=== PATIENT | female | born 1940 | race Caucasian/White ===

== ENCOUNTER 2017-01-04 06:39 | Emergency (ER) | payer OTHER ==
[~2017-01-04] VITALS: Ht 165.1 cm; Wt 59.0 kg
[2017-01-04] MEDS ORDERED: BENADRYL25 MG (06:53)
[2017-01-04] MEDS ORDERED: ALEVE220 MG PO (06:54)
[2017-01-04] MEDS ORDERED: NORCO 5-325 TA1 EACH PO (08:53)
[2017-01-04 09:57] VITALS: BP 120/70
== END 2017-01-04 10:03 | disposition home or self-care (01) ==
LOC: ER 06:39
DX: S52.322A Displaced transverse fracture of shaft of left radius, initial encounter for closed fracture (principal); S52.222A Displaced transverse fracture of shaft of left ulna, initial encounter for closed fracture; S01.81XA Laceration without foreign body of other part of head, initial encounter; S80.212A Abrasion, left knee, initial encounter; W18.31XA Fall on same level due to stepping on an object, initial encounter; Y93.89 Activity, other specified; Y92.89 Other specified places as the place of occurrence of the external cause; Y99.8 Other external cause status

== ENCOUNTER → 2017-01-11 | Outpatient (CLI) | payer OTHER ==
[~2017-01-11] MED LIST: ALEVE220 MG PO; BENADRYL25 MG; NORCO 5-325 TA1 EACH PO
--- NOTE | ~2017-01-11 | EKG ---
[place] [address] [facility] [employer] [place] [address] ELECTROCARDIOGRAM REPORT Name: AIDA DAILY ANN Room #: REG MICHAEL Calvert#: [id number] Admission: 01/11/17 Attend Phys: Arianna Watt MD Discharge: Date of : 44 Report #: [id number] THIS REPORT FOR: //name// [facility] Test Date: 2017-01-11 Test Time: 10:36:52 Pat Name: AIDA DAILY Department: Room: Gender: F Conveyancer: cherise : 1940 Requested By: Arianna Watt Order Number: [id number] MD: Jones Lao Measurements Intervals [place] Rate: 94 P: -25 [place]: 128 QRS: 80 QRSD: 92 T: 39 QT: 332 QTc: 416 Interpretive Statements Sinus rhythm RSR' in V1 or V2, right VCD No previous ECG available for comparison Electronically Signed On 01-11-2017 18:29:00 CDT by Jones Lao [email or web address] <ELECTRONICALLY SIGNED> By: Jones Lao MD, [facility] 01/11/17 1829 1036 1036 Jones Lao MD, FACC /EPI
== END ==
LOC: CV 09:58
DX: Z01.818 Encounter for other preprocedural examination (principal)

== ENCOUNTER 2020-08-01 10:11 | Inpatient (IN) | payer OTHER ==
[~2020-08-01] VITALS: Ht 167.6 cm; Wt 65.3 kg
[2020-08-01 10:12] VITALS: BP 133/66
--- NOTE | 2020-08-01 10:28 | NUR ---
INTRODUCED SELF TO PT DISCUSSED ER PLAN OF CARE ORIENTED TO ROOM AND EQUIPTMENT WARM BLANKET GIVEN
[2020-08-01 12:49] LABS: ABSOLUTE NEUTROPHILS 9.4 thou/uL (1.4-8.2); BASOPHILS 0.7 % (0.0-2.0); EOSINOPHILS 0.3 % (0.0-3.0); HEMATOCRIT 32.4 % (37.0-47.0); HEMOGLOBIN 9.3 gm/dL (12.0-15.0); LYMPHOCYTES 7.5 % (24.0-44.0); MCH 16.1 pg (26.0-34.0); MCHC 28.8 g/dL (28.0-37.0); MONOCYTES 3.2 % (1.0-8.0); PLATELET COUNT 455 thou/uL (150-400); POLYS 88.3 % (36.0-66.0); RBC 5.78 mil/uL (4.20-5.00); RDW 21.7 % (10.5-14.5); WBC 10.7 thou/uL (4.0-11.0)
[2020-08-01 12:58] LABS: CREATININE 0.8 mg/dL (0.6-1.0); POTASSIUM 3.9 mmol/L (3.5-5.1)
[2020-08-01 13:01] LABS: ALBUMIN 3.5 g/dL (3.4-5.0); TOTAL BILIRUBIN 1.6 mg/dL (0.2-1.0); TOTAL PROTEIN 7.1 g/dL (6.4-8.2)
[2020-08-01 13:33] LABS: ANISOCYTOSIS 2+; HYPOCHROMASIA 3+; MICROCYTES 3+; OVALOCYTES 1+
[2020-08-01 13:39] LABS: URINE BILIRUBIN NEGATIVE (Negative); URINE BLOOD NEGATIVE (Negative); URINE CLARITY CLOUDY; URINE COLOR YELLOW; URINE GLUCOSE-RANDOM* NEGATIVE (Negative); URINE KETONES NEGATIVE (Negative); URINE LEUKOCYTES-REFLEX TRACE (Negative); URINE PROTEIN (DIPSTICK) NEGATIVE (Negative); URINE SPECIFIC GRAVITY 1.015 (1.005-1.035); URINE UROBILINOGEN 0.2 E.U./dl (0.2-1.0)
[2020-08-01 13:41] LABS: URINE NITRITE-REFLEX POSITIVE (Negative)
[2020-08-01 13:50] LABS: SQUAMOUS 0-3 Few /LPF (0-3)
[2020-08-01 13:51] LABS: AMORPHOUS URATES Few /LPF (None Seen); BACTERIA-REFLEX 1-9 Few /HPF (None Seen); CASTS None Seen /LPF (None Seen); URINE RBC None Seen /HPF (0-2); URINE WBC-REFLEX 0-5 Rare /HPF (0-5)
[2020-08-01 14:43] VITALS: BP 135/71
[2020-08-01 15:00] VITALS: BP 135/71
--- NOTE | 2020-08-01 18:46 | NUR ---
Admitted per ED at 1509 to RM 437. Alert and orientated X4. Calm and cooperative. States she fell on ice this AM. Edema around L eye with bruising above eye. Small abrasion to R knee. Pupils equal, boat builder equal and strong. Breath sounds clear, bilaterally equal. Reg HR auscultated. Color pink with brisk capillary refill and palpable peripheral pulses. Continent of urine. Active bowel sounds over soft, rounded abdomen. States she had BM this AM prior to fall. Knee immobilizer in place per L leg, removed to take off jeans, knee swollen. Speaking on phone without s/o distress.
[2020-08-01 20:01] VITALS: BP 114/73
--- NOTE | 2020-08-02 02:57 | NUR ---
PT LYING IN BED. VOIDING PER BEDPAN. LORTAB PROVIDING PAIN RELIEF. RESTING COMFORTABLY. NO NEEDS VOICED. CALL LIGHT WITHIN REACH. FREQUENT OBSERVATION.
[2020-08-02 07:35] VITALS: BP 120/64
--- NOTE | 2020-08-02 08:39 | NUR ---
ASSUMED CARE OF PATIENT 0645 SHE IS ALERT XS 4 RESING IN BED NO PAIN OR RESP DISTRESS USES BEDPAIN STATES PLAN IS PATELLA SURGERY 08/03/20. PLEASANT AND COOPERATIVE WITH CARE.
--- NOTE | 2020-08-02 09:24 | EKG ---
[place] [address] [facility] [place] [address] ELECTROCARDIOGRAM REPORT Name: AIDA DAILY ANN Room #: 437-P ADM IN M.R.#: [id number] Admission: 08/01/20 Attend Phys: Radha Bañuelos Discharge: Date of : 44 Report #: [id number] [facility] ED Test Date: 2020-08-01 Test Time: 12:57:26 Pat Name: AIDA DAILY Department: Room: 437 Gender: F Farebox Repairer: kf : 1940 Requested By: Kiki Caban Order Number: [id number] MD: Shilo Castillo Measurements Intervals [place] Rate: 96 P: 8 [place]: 128 QRS: 59 QRSD: 89 T: 35 QT: 353 QTc: 447 Interpretive Statements Sinus rhythm Compared to ECG 01/11/2017 10:36:52 No significant changes Electronically Signed On 08-02-2020 9:24:00 WAREHOUSE DISTRIBUTION SPECIALIST by Shilo Castillo [email or web address] <ELECTRONICALLY SIGNED> By: Shilo Castillo MD 08/02/20 0924 1257 MD TOREY Shell
[2020-08-02 16:00] VITALS: BP 121/87
--- NOTE | 2020-08-02 19:20 | NUR ---
PATIENT RESTING IN BED NO PAIN OR RESP DISTRESS. HAS IMMBOLIZER TO LEFT LE. HAS BRUISING TO LEFT FACE AND LEFT EYE.NPO AT MIDNIGHT.
[2020-08-02 19:59] VITALS: BP 132/79
--- NOTE | 2020-08-03 03:58 | NUR ---
PT LYING IN BED. VOIDING PER BEDPAN. LORTAB PROVIDING PAIN RELIEF. PLAN FOR SURGERY 06/02. RESTING COMFORTABLY. NO NEEDS VOICED. CALL LIGHT WITHIN REACH. FREQUENT OBSERVATION.
[2020-08-03 04:50] VITALS: BP 116/73
[2020-08-03 07:25] VITALS: BP 124/72
--- NOTE | 2020-08-03 08:07 | NUR ---
ASSUMED CARE OF PATIENT,SHE IS NPO FOR SURGERYOF LEFT PATELLA FRACTURE. NO PAIN BUT SLIGHTLY NERVOUS. NO TIME YET FOR SURGERY.
--- NOTE | 2020-08-03 09:23 | NUR ---
Received consult for wound. Pt admitted with patella fracture following fall on ice. No pressure ulcers indicated. NPO for surgery today. Previously on regular diet and eating >75% and no wt loss indicated. Low nutrition risk
--- NOTE | 2020-08-03 09:33 | NUR ---
ASSESSMENT: CM REVIEWED CHART AND SPOKE WITH PATIENT. PT IS ALERT AND ORIENTED X4. PT IS ADMITTED AFTER PATELLA FX. PT REPORTS THAT SHE LIVES IN A DUPLEX WITH ONE STEP TO ENTER AND NO STEPS ONCE SHE IS INSIDE. PT REPORTS THAT SHE NORMALLY AMBULATES INDEPENDENTLY BUT REPORTS SHE TOOK A CANE OUTSIDE TO HELP SINCE IT WAS ICY AND ENDED UP FALLING. PT REPORTS THAT SHE HAS NOT HAD HH IN THE PAST OR BEEN TO A SNF. PT IS TO GET SURGERY TODAY AND LIKELY RECOMMENDATION FOR POST ACUTE CARE. CM DISCUSSED THIS WITH PATIENT AND PROVIDED HER WITH A SNF LIST OF IN-NETWORK FACILITIES. PT REPORTS SHE MAY BE INTERESTED [facility] IF SHE NEEDS SNF IT IS CLOSE TO HER BROTHERS HOME. CM SENT REFERRAL TO [facility] AND NOTIFIED ADMISSIONS AND AWAITING FURTHER INPUT AT THIS TIME.
--- NOTE | 2020-08-03 12:08 | NUR ---
AT 12:08 PATIENT TAKEN TO PRE-OP. PT W/O PAIN OR RESP DISTRESS AT THAT TIME.
--- NOTE | 2020-08-03 15:10 | NUR ---
PATIENT TRIED TO DO THERAPY WITH PT BUT FELT NAUSEOUS PT GIVEN IV ZOFRAN AND CA IV PAIN MED. PT IS GOING TO TRY GET SOME SLEEP.
--- NOTE | 2020-08-03 16:41 | NUR ---
REPORT FROM POST-OP PATIENT ARRIVED ON UNIT AT 16:16. ALERT XS 4 V.S. 98.6 18 100 142/84 O2 SAT =94 % RA. PT HAS PICCO CHECO IMMOBILIZER TO LEFT LE MAY USE ICE BAGS. IMMBOLIZER IS LOCKED AND PATIENT MAY BEAR WEIGHT BUT NOT BEND. PT TO HAVE REGULAR DIET.
--- NOTE | 2020-08-03 18:47 | NUR ---
PT BACK FROM SURGERY ALERT XS 4 NO PAIN NO RESP DISTRESS. PT GIVEN FLU VACCINE IN LEFT DELTOID. PT ATE REGULAR DIET.
[2020-08-03 19:40] VITALS: BP 119/78
--- NOTE | 2020-08-04 07:32 | NUR ---
RECEIVED CARE OF THIS PATIENT AT 1900. PATIENT ALERT AND ORIENTED X4. HAS AN IMMOBILIZER ON L LOWER EXT. THIS IS TO KEEP EXT STRAIGHT. ON BEDREST, USES BEDPAN BY SELF. HAS MARYJANE DRESSING UNDER BRACE WITH AN CHECO OVER THE MARYJANE. ICE APPLIED TO KNEE. DENIES PAIN. SLEPT OFF AND ON DURING NIGHT.
[2020-08-04 08:37] VITALS: BP 120/75
[2020-08-04] MEDS ORDERED: MIRALAX17 GM PO (10:27)
[2020-08-04] MEDS ORDERED: HYDROCODON-ACE1 EAC7 PO (10:27)
[2020-08-04] MEDS ORDERED: CEFUROXIME250 MG PO (10:27)
--- NOTE | 2020-08-04 14:23 | NUR ---
ON-GOING ASSESSMENT: CM REVIEWED CHART. PHYSICAL THERAPY RECOMMENDING ACUTE REHAB. CM MET WITH PATIENT AND NOTIFIED HER CM SENT REFERRAL TO [facility] AND THEY REPORT THEY DO NOT HAVE A BED UNTIL TOMORROW. CM ASKING FOR ANOTHER PREFERENCE OF SNF. PT STATING SHE WANTS TO SEE IF SHE CAN GO TO REHAB HERE. CM DISCUSSED THAT A CONSULT WOULD HAVE TO BE COMPLETED AND INSURANCE WOULD HAVE TO AUTHORIZE IT. PT STATING SHE PREFERS TO TRY ACUTE REHAB HERE HER FIRST CHOICE AND IF NOT WILL LIKELY BE AGREEABLE TO SNF. CM NOTIFIED [facility] AND THEY WILL SUBMIT FOR AUTH. CM NOTIFIED [facility] AND THEY ARE CONTINUING TO FOLLOW PENDING THE OUTCOME. CM WILL CONTINUE TO FOLLOW TO ASSIST NEEDED.
--- NOTE | 2020-08-04 15:32 | NUR ---
PATIENT IS A CANDIDATE FOR ACUTE REHAB AND BEEN ACCEPTED TO [facility] PENDING AUTHORIZATION FROM INSURANCE. AUTHORIZATION PROCESS INITIATED THIS DATE. WILL FAX CLINICAL INFORMATION ONCE OT EVALUATION HAS BEEN COMPELTED. WILL AWAIT INSURANCE RESPONSE. THANK YOU FOR THIS REFERRAL.
[2020-08-04 18:24] VITALS: BP 110/56
--- NOTE | 2020-08-04 18:55 | NUR ---
ASSUMED PATIENT CARE AT 0700, A/O X4. PLEASANT . PAIN MEDS FOR LEFT KNEE PIAN. UP WITH ASSISTED. VSS. PROGRESSING TOWARDS POC GOALS.
[2020-08-04 19:30] VITALS: BP 122/64
[2020-08-04 21:31] VITALS: BP 122/64
--- NOTE | 2020-08-05 04:07 | NUR ---
PT AOX4 WITH INTERMITTENT FORGETFULNESS. PT REPORTS DULL, THROBBING PAIN IN LEFT KNEE. PT DENIES SOB WHILE ON ROOM AIR. PT RECEIVING PRN IV MORPHINE Q2HR WITH PRN PO NORCO Q4HR AVAILABLE. PT REPORTS SOME RELIEF WITH ICE PACK APPLICATION. PT TOLERATING PO INTAKE OF FLUIDS AND REGULAR DIET WITHOUT ISSUE. PT WITHOUT NAUSEA OR EMESIS. PT RESTING IN BED THROUGHOUT SHIFT, FREQUENT REPOSITIONING ENCOURAGED, PT NOTED TO SHIFT INDEPENDENTLY WHILE IN BED. LLE BRACE REMAINS IN PLACE. PT REPORTS NUMBNESS IN LLE, LEFT FOOT NOTED TO BE PALE, SKIN APPROPRIATE FOR RACE OTHERWISE. CAPILLARY REFILL INTACT IN ALL EXTREMITIES. BLE ELEVATED, PT REFUSING ELEVATION ABOVE HEART DUE TO REPORTS OF DISCOMFORT IN THAT POSITION. PT ENCOURAGED TO NOTIFY STAFF FOR ALL NEEDS, CALL LIGHT WITHIN REACH, BED ALARM ON, BED LOCKED IN LOWEST POSITION, FREQUENT MONITORING WILL CONTINUE.
[2020-08-05 07:15] VITALS: BP 120/72
--- NOTE | 2020-08-05 09:08 | NUR ---
Assumed care of pt at 0700. Pt a&ox4. Pain controlled with prn pain meds. Knee brace in place. Up SBA to bedpan. Possible [facility] vs SNF. Room air. Call light within reach. Pt calls appropriately. Will continue to monitor.
--- NOTE | 2020-08-05 14:08 | NUR ---
CALL RECEIVED FROM PATIENT'S INSURANCE WITH DENIAL FOR ACUTE REHAB STAY. PEER TO PEER CAN BY ARRANGED, IF DESIRED, BY CALLING [id number] BY 3:00 PM TOMORROW ([facility] RFID ANALYST). [employer] INFORMED OF DENIAL AND STATED THAT THEY WOULD PLAN FOR SKILLED PLACEMENT. THANK YOU FOR THIS REFERRAL.
--- NOTE | 2020-08-05 14:35 | NUR ---
ON-GOING ASSESSMENT: MAUREEN REVIEWED CHART AND WAS NOTIFIED BY LIASON ON [facility] THAT ACUTE REHAB WAS DENIED. MAUREEN NOTIFIED [facility] AT [facility] AND FAXED UPDATED CLINICAL ASKING HER TO REQUEST AUTH FOR SNF [facility]. KARLIE AT THE [facility] IS REQUESTING AUTH AND AWAITING INSURANCE DECISION AT THIS TIME. CHART COPY WAS REQUESTED.
[2020-08-05 16:45] VITALS: BP 128/70
[2020-08-05 19:13] VITALS: BP 122/62
--- NOTE | 2020-08-05 22:16 | NUR ---
ASSESSED AT START OF SHIFT. PT A&OX4. HYDROCODONE GIVEN FOR PAIN. VOIDS VIA BED BANERJEE. LEFT KNEE IMOBILIZER INTACT. ICE PACK PROVIDED. NIGHT TIME MEDICATION PROVIDED. NO FURTHER SIGNS OF DISCOMFORT WILL CONT TO MONITOR.
[2020-08-06 04:13] VITALS: BP 124/65
[2020-08-06 07:05] VITALS: BP 111/60
--- NOTE | 2020-08-06 08:11 | NUR ---
on-GOING ASSESSMENT: CM REVIEWED CHART. [facility] CAN PILE DRIVING TECHNICIAN PATIENT TODAY FOR SNF AT 0930. CM NOTIFIED BEDSIDE RN WELL PATIENT WHO REPORTS SHE WILL NOTIFY HER FAMILY. CHART COPY WAS ALREADY ORDERED. CM FAXED DISCHARGE ORDERS TO FACILITY ALONG WITH NEGATIVE COVID TEST. BEDSIDE RN HAS THE CONTACT NUMBER FOR REPORT. PT REPORTS NO FURTHER NEEDS FROM CM.
--- NOTE | 2020-08-06 09:53 | NUR ---
PT CARE ASSUMED AT 0700. A&Ox4. KNEE IMMOBILIZER IN PLACE. MARYJANE DRESSING IN PLACE. EDUCATION GIVEN. DC REPORT GIVEN TO THE [facility], ([facility]). ICEPACK OFFERED BUT DECLINED BY PT. PT DECLINED PAIN AND REFUSED PAIN MEDICATION. IV WAS PATENT WITH NO REDNESS OR EDEMA, IV REMOVED. DISCAHRGE INSTRUCTIONS GIVEN WITH NO FURTHER FOLLOW UP QUESTIONS ASKED. PT LEFT THE UNIT AT 0940. FALL PROTOCOL WAS IN PLACE.
--- NOTE | 2020-08-06 14:01 | O ---
[facility] [place] [address] OPERATIVE REPORT Name: AIDA DAILY Room #: 437-P [facility] IN M.R.#: [id number] Admission: 08/01/20 Attend Phys: Radha Bañuelos Discharge: 08/06/20 Date of : 44 Report #: [id number] THIS REPORT FOR: cc: FAM - No family physician/PCP FAM - No family physician/PCP Himanshu Le MD ~ DATE OF SERVICE: 08/03/2020 PREOPERATIVE DIAGNOSIS: Left displaced transverse patellar fracture. POSTOPERATIVE DIAGNOSIS: Left displaced transverse patellar fracture. PROCEDURE: ORIF, left patellar fracture. SURGEON: Himanshu Le MD. BAND SEWER: Radha King PA-C. INDICATIONS FOR BAND SEWER: Throughout the case, extensive retraction and manipulation of the knee including maintenance of reduction of the patellar fracture was required. This was afforded to me by my preschool assistant principal. ANESTHESIA: LMA with femoral nerve block. IMPLANTS: Villa and Nephew partially threaded 4.0 cancellous screws for fracture fixation with an 18-gauge tension band wire through the screws. TOURNIQUET TIME: 33 minutes. ESTIMATED BLOOD LOSS: 25 mL. COMPLICATIONS: None. SPECIMENS: None. CONDITION UPON LEAVING THE OPERATING ROOM: Stable. INDICATIONS FOR PROCEDURE: The patient is a 80-year-old female who fell at home on the ice 2 days ago and sustained a left displaced transverse patellar fracture. After discussion with her, she elected for ORIF. DESCRIPTION OF PROCEDURE: Risks, benefits, alternatives, complications were discussed in detail with the patient including but not limited to risk of anesthesia, risk of damage to nerves, arteries, blood vessels, risk for infection, bleeding, risk for malunion, nonunion, and need for reoperation. [facility] [address] [place] [address] OPERATIVE REPORT Name: AIDA DAILY ANN Room #: 437-P [facility] IN M.R.#: [id number] Admission: 08/01/20 Attend Phys: Radha Bañuelos Discharge: 08/06/20 Date of : 44 Report #: [id number] Informed consent was obtained from the patient. The left knee was appropriately marked in the preoperative holding area. IV Ancef was given for preoperative antibiotics. Femoral nerve block was placed by Anesthesia. She was brought to the operating room and placed in supine position on operating room table. LMA anesthesia was induced without complication. Tourniquet was placed on the left thigh. Left lower extremity was prepped and draped in normal sterile fashion. Timeout was performed properly identifying the patient and procedure as well as the instrumentation and implants. All in the operating room were in agreement. Left lower extremity was exsanguinated, tourniquet was inflated. Tourniquet time was 33 minutes. Standard midline approach to the knee was made with 10 blade through the skin. Dissection was taken down sharply to the patella and there was obvious transverse patellar fracture. There was a slight amount of comminution medially and laterally. These comminuted pieces were removed sharply. Fracture ends were cleaned off with curette and removed hematoma, thoroughly irrigated and then held reduced with a [id number] reduction forceps. Fluoroscopic imaging was brought in to verify adequate fracture reduction. Two threaded tip K-wires were placed from superior to inferior perpendicular to the fracture line and measured, these were 42 and 46 mm in length. Two partially threaded 4.0 cancellous screws were then placed from superior to inferior and seated. An 18-gauge wire was then placed through the cannulated screws in a tension band technique. These were tightened down with a needle route sales delivery drivers supervisor and bent over into the quad tendon. Final fluoroscopic images were then taken to verify adequate fracture reduction and placement of hardware. The knee was thoroughly irrigated with normal saline. The retinacular tear, medial and lateral was repaired with 0 Vicryl. Skin was closed with 2-0 Vicryl, skin staple and a MARYJANE dressing was applied. She was placed in a long leg hinged knee brace locked in extension. She went to recovery room under care of anesthesia postoperatively. <ELECTRONICALLY SIGNED> By: Himanshu Le MD 08/06/20 1401 1531 1600 Himanshu Le MD /nt
== END 2020-08-06 10:07 | DRG 517 ==
LOC: ER 10:11 → EROBS 12:50 → 4S 12:50
PROVIDERS: Emergency Medicine; ADMIT Hospitalist; ATTEND Hospitalist
PROC: 0QSF04Z Reposition Left Patella with Internal Fixation Device, Open Approach (ICD-10-PCS; principal; 2020-08-03)
DX: S82.032A Displaced transverse fracture of left patella, initial encounter for closed fracture (principal); S00.10XA Contusion of unspecified eyelid and periocular area, initial encounter; Z20.822 Contact with and (suspected) exposure to COVID-19; M81.0 Age-related osteoporosis without current pathological fracture; Z60.2 Problems related to living alone; R68.2 Dry mouth, unspecified; K59.00 Constipation, unspecified; Z47.89 Encounter for other orthopedic aftercare; W01.0XXA Fall on same level from slipping, tripping and stumbling without subsequent striking against object, initial encounter; Y93.89 Activity, other specified; Y92.89 Other specified places as the place of occurrence of the external cause; Y99.8 Other external cause status; Z23 Encounter for immunization
CPT/HCPCS: 10195; 50010; 50101; 50386; 50954; 51412; 53078; 53337; 56528; 57091; 57103; 57179; 57254; 58138; 58447; 62110; 62900; 64039; 70005